=== PATIENT | female | born 1950 | race Caucasian/White ===

== ENCOUNTER → 2021-04-05 09:55 | Outpatient (CLI) | payer MEDICARE, OTHER, SELFPAY ==
--- OUTSIDE RECORDS SUMMARY | 2021-04-03 08:22 | XMS_ITS | Referral Summary ---
:1950 Author Organization [facility] Address [address] [place] [id number] Care Team Providers Name Role Phone Akbar Mueller Primary Care Provider Reason for Referral Consultation (Routine) Status Reason Specialty Diagnoses / Referred By Referred To Procedures Contact Contact Authorized Diagnoses Centrilobular emphysema (CMS/HCC) Milton Adamson MD [facility] Procedures Complete PFT with DLCO [address] [place] [phone] Phone: Electronically signed by Milton Adamson MD atMRI/CAT/PET Scan (Routine) Status Reason Specialty Diagnoses / Referred By Referred To Procedures Contact Contact Pending Review Specialty Radiology Diagnoses Multiple pulmonary nodules Milton Adamson, Services Procedures CT CHEST WITHOUT CONTRAST MD Required [address] [place] [address] Electronically signed by Milton Adamson MD at Reason for Visit Reason Comments COPD Evaluate and Treat (Routine) Status Reason Specialty Diagnoses / Procedures Referred By Coleen ott Referred To Contact Closed Pulmonology Diagnoses COPD (chronic obstructive pulmonary disease) (CMS/HCC) Mercedes Gomez Mv Pulmonology Procedures MD Renetta [address] 275 [facility] [address] [place] [phone] Phone: [phone] Fax: Encounter Details Date Type Department Care Team Description 03/29/2021 Office Visit Milton Woodson M D Centrilobular emphysema (CMS/HCC) (Prima ry Dx); Clinics Pulmonology [address] Multi ple pulmonary nodules [facility] [address] [place], [place] [phone] Allergies Active Allergy Reactions Severity Noted Date Comments Ciprofloxacin High 10/07/2019 Sulfa (Sulfonamide Antibiotics) High 0 documented as of this encounter (statuses as of 03/29/2021) Medications Medication Sig Dispensed Refills Start Date End Date Status PROAIR HFA 90 0 08/23/2019 Activ e mcg/actuation inhaler amLODIPine (NORVASC) 5 0 08/19/2019 Active mg tablet ADVAIR DISKUS 250-50 0 08/23/2019 Active mcg/dose diskus inhaler SPIRIVA WITH 0 08/23/2019 Active HANDIHALER 18 mcg PARoxetine (PAXIL) 20 2 (two) times a 0 08/19/2019 Active mg tablet day cholecalciferol, Take 5,000 Units 0 Active vitamin D3, 25 mcg by mouth daily (1,000 unit) capsule aspirin 325 mg tablet Take 325 mg by 0 Active mouth daily esomeprazole (NexIUM) Take 40 mg by 0 Active 40 mg capsule mouth every morning before breakfast magnesium 30 mg tablet Take 30 mg by 0 Active mouth daily PreviDent 5000 Plus 0 01/26/2021 Active 1.1 % cream sucralfate (CARAFATE) 0 03/18/2021 Active 1 gram tablet tolterodine LA (DETROL 0 03/18/2021 Active LA) 2 mg 24 hr capsule melatonin 10 mg Take 20 mg by 0 Active capsule mouth nightly NEBULIZERS MISC 0 Acti ve documented as of this encounter (statuses as of 03/29/2021) Active Problems Problem Noted Date Primary osteoarthritis of right hip 10/11/2019 documented as of this encounter (statuses as of 03/29/2021) Social History Tobacco Use Types Packs/Day Years Used Date Former Smoker Cigarettes 1.5 4.5 Quit: 1967 Smokeless Tobacco: Never Used Alcohol Use Standard Drinks/Week Comments Yes 2 (1 standard drink = 0.6 oz pure alcoho l) Sex Assigned at Date Recorded Not on file Job Start Date Occupation Industry Not on file Not on file Not on file documented as of this encounter Last Filed Vital Signs Vital Sign Reading Time Taken Comments Blood Pressure 119/75 03/29/2021 1:17 PM PDT Pulse 76 03/29/2021 1:17 PM PDT Temperature 36.8 ??C (98.2 ??F) 03/29/2021 1:17 PM PDT Respiratory Rate - - Oxygen Saturation 96% 03/29/2021 1:17 PM PDT Inhaled Oxygen Concentration - - Weight 83.1 kg (183 lb 3.2 oz) 03/29/2021 1:17 PM PDT Height 167.6 cm (5' 6) 03/29/2021 1:17 PM PDT Body Mass Index 29.57 03/29/2021 1:17 PM PDT documented in this encounter Patient Instructions Patient InstructionsHarMilton draper MD - 03/29/2021 1:20 PM PDT You were seen in pulmonary clinic today to establish pulmonary care for your COPD and multiple pulmonary nodules. Continue Advair Continue Spiriva Continue albuterol ipratropium nebulized as needed Continue albuterol inhaler as needed Continue BPAP with sleep You will be contacted to schedule a CT of the chest at [facility] radiology You will be contacted to schedule a pulmonary function test at [facility] pulmonary function testing Follow-up in 4 months documented in this encounter Progress Notes Milton Adamson MD - 03/29/2021 1:20 PM PDT [facility] PULMONARY CONSULT NOTE PRIMARY CARE PHYSICIAN: Akbar Mueller Patient Name: Renae Lafleur : 1950 DIAGNOSES: Patient Active Problem List Diagnosis ??? Primary osteoarthritis of right hip Assessment: 1. Severe COPD, possible asthma COPD overlap, no recent exacerbation, symptoms well controlled. 2. Multiple calcified pulmonary nodules and emphysema, stable by serial CT through 2017 3. Chronic respiratory failure with hypoxemia and hypercapnia, use of BiPAP plus supplemental O2 with sleep 4. Dyspnea on exertion, stable I discussed with Ms. Lafleur that overall she does seem to be doing fairly well on her current regimen of inhaled therapies and I will have her continue these as below. I will have her undergo updated noncontrast CT chest, pulmonary function testing and she agreed to the plan. Encouraged her to stay as active as she can tolerate, she is quite busy taking care of 2 other elderly adults with health problems in her home. 1. Severe COPD, possible asthma COPD overlap ???Update PFT, she requests at [place] PFT lab ???She will continue Spiriva daily ???Continue Advair twice daily ???Continue ipratropium albuterol nebulized as needed ???Continue albuterol MDI as needed 2. Multiple calcified pulmonary nodules and emphysema, stable by serial CT through 2017 ???Noncontrast CT chest, she requests this be done at [facility] radiology 3. Chronic respiratory failure with hypoxemia and hypercapnia, use of BiPAP plus supplemental O2 with sleep ???She will continue BiPAP plus supplemental O2, this is being prescribed by sleep physician 4. Dyspnea on exertion, stable ???Encouraged her to stay as active as she can tolerate Follow-up in 4 months Thank you very much for the opportunity to evaluate and participate in the care of Ms. Lafleur. Please contact me with any questions. Chief Complaint: Renae Lafleur is a 70 y.o. woman presenting for evaluation of COPD, calcified pulmonary nodules and chronic respiratory failure with hypercapnia and hypoxemia History of Present Illness: Ms. Lafleur is a 70-year-old remotely former tobacco smoker with a history of severe COPD, asthma, pulmonary nodular amyloidosis, chronic hypercapnic respiratory failure and JAMILA and lupus referred by Dr. Gomez for evaluation of patient's shortness of breath with exertion, COPD and multiple pulmonary nodules. Ms. Lafleur tells me that she has been doing normal for me with reference to shortness of breath with exertion and use of inhaled medications. She reports being followed for many years at from [facility] pulmonary clinic on [facility] by Dr. Gomez and I reviewed some of the scanned in notation. For at least the last 5 years the patient has documented severe COPD, most recent PFT I reviewed [id number] showed FEV1 of 0.85 L, 37% predicted, FEV1 FEC ratio 0.45 and diffusing capacity 47% predicted. She has had multiple stable calcified nodules followed with annual CT, biopsy suggesting nodular amyloid diagnosed as most likely secondary to her history of lupus. The most recent CT report I reviewed is from October 2016 multiple parenchymal calcification opacities stable, left upper lobe 15 mm, right middle lobe 2.4 x 1.5 cm, multiple stable cysts and/or emphysematous changes, left basilar scar1.6 x 1.4 cm. This was all in comparison to CT 2011. Ms. Lafleur is currently using Spiriva daily, Advair 250 mcg 1 puff 2 times daily and will periodically use albuterol ipratropium nebulized. She reports undergoing a course of steroids for her lupus flare triggered by Covid vaccination but has not required steroids in her memory perhaps in at least 3 y ears for COPD. She has never been hospitalized for COPD. Functionally she reports herself as doing okay, has to use a wheeled walker if she has to walk anydistance. She stays pretty active at home and humorously states that if she has to exert herself, lift anything, go up an incline, she will elmore and puff like a steam engine. She feels like her tolerance of lifting, ambulating, inclines, etc. has been stable over the last couple years. She is actually at home taking care of a 94-year-old mother and her with dementia. She has periodic cough, minimal sputum production. She is using supplemental oxygen with BiPAP, has an upcoming sleep appointment. She does not use supplemental oxygen very often during the day. Additional surgical history reviewed, she has history of gastric bypass. Review of systems except as stated, negative. Past Medical History: Diagnosis Date ??? Amyloidosis, unspecified (CMS/HCC) ??? Anemia, iron deficiency ??? Asthma ??? Asymptomatic postmenopausal status ??? Bronchiectasis (CMS/HCC) ??? Carpal tunnel syndrome ??? Cervical radiculopathy ??? COPD (chronic obstructive pulmonary disease) (CMS/HCC) ??? Cough ??? Discoid lupus erythematosus ??? Diverticular disease ??? Dysphagia, unspecified ??? Dyspnea on exertion ??? Encounter for screening mammogram for breast cancer ??? Epigastric pain ??? Essential hypertension, benign ??? GERD (gastroesophageal reflux disease) ??? Headache ??? Hearing loss ??? Hip pain, right ??? History of pneumonia ??? Leukopenia ??? Malaise and fatigue ??? Nausea ??? Obstructive sleep apnea ??? Osteoporosis ??? Other chest pain ??? Pneumonia ??? Postnasal drip ??? Shoulder pain, right ??? Sinusitis, chronic ??? Unspecified otitis externa, bilateral Past Surgical History: Procedure Laterality Date ??? BARIATRIC SURGERY [place] ??? HIP ARTHROPLASTY Right FELIPE, DOS: [address] Brian Kenney at [facility] , ??? KNEE SURGERY Bilateral arthroplasties ??? NECK SURGERY C-7 fracture Allergies Allergen Reactions ??? Ciprofloxacin ??? Sulfa (Sulfonamide Antibiotics) Home Meds: Current Outpatient Medications on File Prior to Visit Medication Sig Dispense Refill ??? ADVAIR DISKUS 250-50 mcg/dose diskus inhaler ??? amLODIPine (NORVASC) 5 mg tablet ??? aspirin 325 mg tablet Take 325 mg by mouth daily ??? cholecalciferol, vitamin D3, 25 mcg (1,000 unit) capsule Take 5,000 Units by mouth daily ??? esomeprazole (NexIUM) 40 mg capsule Take 40 mg by mouth every morning before breakfast ??? magnesium 30 mg tablet Take 30 mg by mouth daily ??? melatonin 10 mg capsule Take 20 mg by mouth nightly ??? NEBULIZERS MISC ??? PARoxetine (PAXIL) 20 mg tablet 2 (two) times a day ??? PreviDent 5000 Plus 1.1 % cream ??? PROAIR HFA 90 mcg/actuation inhaler ??? SPIRIVA WITH HANDIHALER 18 mcg ??? sucralfate (CARAFATE) 1 gram tablet ??? tolterodine LA (DETROL LA) 2 mg 24 hr capsule No current facility-administered medications on file prior to visit. Social History Socioeconomic History ??? Marital status: Spouse name: Not on file ??? Number of children: Not on file ??? Years of education: Not on file ??? Highest education level: Not on file Tobacco Use ??? Smoking status: Former Smoker Packs/day: 1.50 Years: 4.50 Pack years: 6.75 Types: Cigarettes Quit date: 1968 Years since quittin.5 ??? Smokeless tobacco: Never Used Vaping Use ??? Vaping Use: Never used Substance and Sexual Activity ??? Alcohol use: Yes Alcohol/week: 2.0 standard drinks Types: 1 Glasses of wine, 1 Standard drinks or equivalent per week ??? Drug use: Never ??? Sexual activity: Defer Family History Problem Relation Age of Onset ??? Diabetes Mother ??? Leukemia Father Review of Systems: Per HPI, otherwise a complete review of systems was negative. OBJECTIVE: Vital Signs on Arrival: Temp: 36.8 ??C (98.2 ??F) Heart Rate: 76 SpO2: 96 % BP: 119/75 Vitals Signs (most recent): Temp: 36.8 ??C (98.2 ??F) Heart Rate: 76 SpO2: 96 % BP: 119/75 Admission Weight: Weight: 83.1 kg Physical Exam: General: Woman of medium habitus breathing comfortably, focused, in good spirits Neurologic: Awake. Alert. Oriented. Akbar equally. Stable rise from chair and ambulate with wheeled walker HENT: No nasal deformity or drainage Eyes: Conjunctivae clear, sclera anicteric Neck: supple. No LAD. CV: Regular Pulm: Breath sounds a little quiet during expiratory phase, adequate air movement, no wheezing or crackles Abdomen: Soft. Nontender. Nondistended. Extremities: Warm and well perfused. Skin: No rash or ecchymosis. Total time spent in consultation, 45 minutes. More than 50% of this time was in [id number] interview, exam and counseling with the patient today. Electronically signed by MILTON ADAMSON MD DATE/TIME: 03/29/2021 1:43 PM documented in this encounter Plan of Treatment Upcoming Encounters Date Type Specialty Care Team Description 05/14/2021 Office Visit Dermatology Pina Flynn, [facility] [address] [place], [place] [address] Scheduled Orders Name Type Priority Associated Diagnoses Order S chedule CT CHEST WITHOUT Imaging Routine Multiple pulmonary nodul es Expected: 03/29/2021, CONTRAST Expires: 2020 Complete PFT with PFT Routine Centrilobular emphysema Expected: 03/29/2021, DLCO (CMS/HCC) Expires: 2021 documented as of this encounter Visit Diagnoses Diagnosis Centrilobular emphysema (CMS/HCC) - Prim bekah Multiple pulmonary nodules Other diseases of lung, not elsewhere cl assified documented in this encounter documented as of this encounter Advance Directives Documents on File Type Date Recorded Patient Pharmacist Aide Explanati on Advance Directives and Living Will
--- NOTE | 2021-04-05 10:16 | DI.CT.S_ITS ---
PROCEDURE: CT CHEST WO CON INDICATIONS: Other nonspecific abnormal finding of lung field TECHNIQUE: Noncontrast 5 mm thick sections acquired from the pulmonary apices to the posterior costophrenic angles. 1 mm lung window, 5 mm thick coronal and sagittal and 7 mm axial MIP reformats were then acquired. For radiation dose reduction, the following was used: automated exposure control, adjustment of mA and/or kV according to patient size. COMPARISON: None. FINDINGS: Image quality: Excellent. Lungs and pleura: Scattered areas of irregular calcific density. For example: -right upper lobe juxta fissural 2.3 x 1.6 cm, (3/129). -right middle lobe 2.4 x 1.9 cm, (3/199). This is ill-defined. -left upper lobe 1.8 x 1.3 cm, (3/108). This has a platelike appearance on the sagittal images. Scattered thin walled pulmonary cysts bilaterally. Some of the cysts are associated with this irregular calcification. Mild atelectasis at the left costophrenic angle. The central airways are clear. No pleural effusion. No pneumothorax. Mediastinum: Heart size is prominent. Three-vessel coronary artery calcifications. No pericardial effusion. No mediastinal adenopathy by size criteria. Thoracic aorta and central pulmonary arteries are normal in size. Aortic arch atherosclerotic calcifications. Esophagus is normal in caliber. No hiatal hernia. Bones and chest wall: ACDF. No suspicious bony lesions. No vertebral body compression fractures. No axillary or supraclavicular adenopathy by size criteria. Thyroid gland is unremarkable. Abdomen: Gastric bypass. Calcification at the splenic hilum. Visualized upper abdominal solid organs and bowel loops appear normal in the absence of contrast. IMPRESSION: 1. Scattered irregular pulmonary calcifications. These do not have the typical appearance of a granuloma. However, these may be the sequelae of prior infectious/inflammatory etiology such as mycobacterium avium intracellulare (AAYUSH). Benign or malignant metastatic calcifications are also in the differential diagnosis. Such as calcifications associated with renal disease or osteosarcoma. 2. Non-specific pulmonary cystic disease. Some of these cysts appear to be associated with the calcifications. 3. No pleural calcifications. No pleural effusion. Recommend comparison with a prior CTs if available. Follow-up CT chest in 6-12 months may also be helpful. If concern for metastatic calcifications consider further evaluation with CT abdomen pelvis with IV contrast. Dictated by: Tristan Lorenzo M.D. on 04/05/2021 at 11:33 Approved by: Tristan Lorenzo M.D. on 04/05/2021 at 12:19
== END ==
PROVIDERS: PCP Internal Medicine; Referring Provider Internal Medicine Critical Care Medicine; Visit Provider Internal Medicine Critical Care Medicine
DX: R91.8 Other nonspecific abnormal finding of lung field (principal); J98.4 Other disorders of lung
CPT/HCPCS: 71250

== ENCOUNTER → 2021-04-12 13:05 | Outpatient (CLI) | payer MEDICARE, OTHER, SELFPAY ==
[2021-04-12 13:49] LABS: COVID19 -Nasal RAPID Negative (Negative)
== END ==
PROVIDERS: PCP Internal Medicine; Referring Provider Internal Medicine Critical Care Medicine; Visit Provider Internal Medicine Critical Care Medicine
DX: J43.2 Centrilobular emphysema (principal); Z20.822 Contact with and (suspected) exposure to COVID-19
CPT/HCPCS: 87635; C9803

== ENCOUNTER → 2021-04-12 13:07 | Outpatient (CLI) | payer MEDICARE, OTHER, SELFPAY ==
--- NOTE | 2021-04-17 09:04 | PM.PFT.1 ---
Pulmonary Function Test Referral & Results Date Patient Seen: 05/13/21 Requesting provider: Milton Acharya Results: The spirometry demonstrates an FVC of 2.08 L which is 64% of predicted. The FEV1 was measured at 0.93 L which is 38% of predicted. The FEV1/FVC ratio was 45 which is 50% of predicted. Following the administration of bronchodilator there was a 19% improvement in FEV1 and a 48% improvement in FEF 25-75%. Lung volumes show an SVC of 2.42 L which is 79% of predicted. The diffusing capacity was measured at 14.46 which is 53% of predicted. No hemoglobin value was provided, so no correction for potential anemia could be made, if appropriate. The maximum voluntary ventilation was reduced Interpretation: This study demonstrates severe obstructive lung disease with an FEV1 of less than 1 L. There is evidence of substantial benefit following bronchodilator based on improvement in FEV1 and FEF 25-75%. There is a mild reduction in lung volumes suggesting minimal restrictive lung disease There is also pliw-qx-zuhbygmd reduction diffusing capacity suggesting significant disease at the capillary alveolar level Altogether this is consistent with a diagnosis of COPD. Clinical correlation suggested.
== END ==
PROVIDERS: PCP Internal Medicine; Referring Provider Internal Medicine Critical Care Medicine; Visit Provider Internal Medicine Critical Care Medicine
DX: J43.2 Centrilobular emphysema (principal); Z20.822 Contact with and (suspected) exposure to COVID-19; Z87.891 Personal history of nicotine dependence
CPT/HCPCS: 87635; 94060; 94726; 94729; C9803

== ENCOUNTER → 2025-02-03 12:29 | Outpatient (CLI) | payer MEDICARE, OTHER, SELFPAY ==
--- NOTE | 2025-02-03 12:32 | DI.ECHO.S_ITS ---
[facility] : : [address] [place] : : [id number] : : Phone: [phone] Echocardiogram Report + + :Name: AMARJIT NAVARRETE Study Date: 02/03/2025 Height: 66 in : :[facility] ReadingLocation: Weight: 150 lb : : Gender: Female BSA: 1.8 m2 : :: 1950 Age: 74 yrs BP: 138/83 mmHg: :Reason For Study: LOWER EXTREMITY EDEMA, RESPIRATORY FAILURE : :Ordering Physician: GRECIA, : :DUYEN Performed By: Jason Jo : :Referring: DUYEN PAIGE : + + Interpretation Summary Normal sinus rhythm. Heart rate is 85-88 bpm. Normal LV size and wall thickness. Normal wall motion and LV systolic function. Ejection fraction 60-65%. Severe biatrial enlargement; mildly dilated right ventricle with normal RV systolic function. Severely thickened mitral valve annulus with mildly thickened and calcified subchordal apparatus. Moderate mitral stenosis with mean gradient of 7 mmHg. Aortic valve is a trileaflet structure characterized by moderately thickened and calcified aortic valve leaflets with mildly reduced leaflet excursion. There is mild aortic regurgitation; moderate aortic stenosis with peak velocity of 3.2 m/s and mean gradient of 22 mmHg. Estimated PA systolic pressure is 99 mmHg assuming right atrial pressure 15 mmHg. No prior echo available for comparison. Procedure: A two-dimensional transthoracic echocardiogram with color flow and Doppler was performed. The study quality was technically good. There is no prior echocardiogram noted for this patient. The patient was in normal sinus rhythm during the exam. Left Ventricle: The left ventricle is normal in size. There is normal left ventricular wall thickness. There is no ventricular septal defect visualized. The ejection fraction is estimated to be 60-65%. There are no focal wall motion abnormalities. Diastolic function could not be accurately assessed due to confounding valvular disease. Right Ventricle: The right ventricle is mildly dilated. Atria: The left atrium is severely dilated. The right atrium is severely dilated. There is no Doppler evidence for an interatrial shunt. Mitral Valve: There is severe mitral annular calcification. The mitral valve leaflets appear mildly thickened, but open well. There is moderate mitral stenosis. The mitral valve mean gradient is 7.0 mmHg. There is trace mitral regurgitation. Aortic Valve: The aortic valve is trileaflet. The aortic valve is moderately calcified. There is moderate aortic stenosis. The calculated aortic valve area is 1.2 cm2. The peak aortic velocity is 3.2 m/sec. The aortic valve mean gradient is 25.4 mmHg. There is mild aortic regurgitation. Tricuspid Valve: The tricuspid valve leaflets are thin and pliable. There is mild tricuspid regurgitation. The right ventricular systolic pressure is estimated to be at least 99 mmHg based on an estimated right atrial pressure of 15 mm Hg. Pulmonic Valve: The pulmonic valve leaflets are thin and pliable; valve motion is normal. There is no pulmonic valvular regurgitation. Great Vessels: The aortic root is normal size. The dimensions of the ascending aorta are normal. The pulmonary artery is normal size. The IVC is dilated (diameter is greater than 2.1 cm) yet it collapses greater than 50% with a sniff. This suggests a right atrial pressure of 8 mm Hg. Pericardium/ Pleura There is no pericardial effusion. There is no pleural effusion. MMode/2D Measurements & Calculations LVIDd: 4.2 cm LVOT diam: 2.2 cm LVIDs: 3.0 cm Ao root diam: 3.5 cm FS: 29.3 % EPSS: 1.1 cm IVSd: 1.0 cm LVPWd: 0.89 cm LV darnell. diameter/BSA (cm/m^2): 2.4 LV sys. diameter/BSA (cm/m^2): 1.7 LA A2 area: 27.0 cm2 RA long axis: 5.7 cm LA A4 area: 19.2 cm2 RA area: 24.4 cm2 LA length (vol): 5.1 cm RA vol: 88.8 ml LA vol: 86.6 ml RA : 50.2 ml/m2 LA vol index: 48.9 ml/m2 IVC diam: 2.1 cm RVD1 (basal): 3.5 cm RVD2 (mid): 2.6 cm TAPSE: 2.9 cm Doppler Measurements & Calculations Ao V2 max: 318.4 cm/sec LVOT Max Hector: 108.0 cm/sec Ao V2 mean: 242.5 cm/sec LV V1 max P.7 mmHg Ao max P.6 mmHg LV V1 VTI: 27.4 cm Ao mean P.4 mmHg LATONYA(I,D): 1.3 cm2 Ao V2 VTI: 77.5 cm LATONYA(V,D): 1.2 cm2 sev ratio: 0.35 LATONYA indexed to BSA (cm^2/m^2): 0.73 AI P1/2t: 367.8 msec AI dec slope: 340.6 cm/sec2 MV E max hector: 138.2 cm/sec TR max hector: 458.1 cm/sec MV A max hector: 177.2 cm/sec TR max P.0 mmHg MV E/A: 0.78 PA V2 max: 87.6 cm/sec Med Peak E' Hector: 3.3 cm/sec PA V2 mean: 55.3 cm/sec E/E' med: 42.3 PA mean P.4 mmHg Lat Peak E' Hector: 4.8 cm/sec PA pr(Accel): 51.6 mmHg E/E' lat: 28.9 E/e' average: 35.6 MV dec time: 0.41 sec MVA(VTI): 1.7 cm2 MV V2 mean: 125.6 cm/sec SV(LVOT): 100.2 ml MV mean P.0 mmHg MV V2 VTI: 58.3 cm Electronically signed by: Leora Abraham M.D. on Reading Physician:02/03/2025 04:00 PM
--- NOTE | 2025-02-03 12:32 | DI.RAD.S_ITS ---
PROCEDURE: XR DEXA AXIAL SKELETON INDICATIONS: Osteoporosis COMPARISON: None. FINDINGS: Lumbar Spine: Bone mineral density 0.739 g/cm2, T score -3.1. Left Femoral Neck: Bone mineral density 0.663 g/cm2, T score -1.7. Left Hip: Bone mineral density 0.793 g/cm2, T score -1.2. Fracture Risk Calculation (when applicable): Not applicable (T score greater or equal to -1.0 to: NORMAL) (T score from -1.1 to -2.4: OSTEOPENIA) (T score less than or equal to -2.5: OSTEOPOROSIS) IMPRESSION: 1. Osteoporosis of the lumbar spine. 2. Osteopenia of the left hip and femoral neck. Follow-up guidelines as follows: Osteoporosis: Consider a repeat DEXA and Vertebral Fracture Assessment (VFA) exam in 2 years or sooner if medically necessary, to reassess this patient's status. Osteopenia: Consider a repeat DEXA in 2-3 years to reassess this patient's status, or if there is a new clinical indication. Normal: Consider a repeat DEXA in 5 years or sooner, or if there is a new clinical indication. All treatment decisions require clinical judgment and consideration of individual patient factors, including patient preferences, comorbidities, previous drug use, risk factors not captured in the FRAX model (e.g., frailty, falls, vitamin D deficiency, increased bone turnover, interval significant decline in bone density ) and possible under- or over-estimation of fracture risk by FRAX. In addition, the NOF Guide recommends that FDA-approved medical therapies be considered in postmenopausal women and men age >= 50 years with a: * Hip or vertebral (clinical or morphometric) fracture * T-score of <=-2.5 at the spine or hip * Ten-year fracture probability by FRAX of >= 3% for hip fracture or >=20% for major osteoporotic fracture. Dictated by: Bob Carrizales M.D. on 02/03/2025 at 17:16 Approved by: Bob Carrizales M.D. on 02/03/2025 at 17:17
== END ==
PROVIDERS: PCP Family Medicine; Referring Provider Family Medicine; Visit Provider Family Medicine
DX: I08.3 Combined rheumatic disorders of mitral, aortic and tricuspid valves (principal); M81.0 Age-related osteoporosis without current pathological fracture; M85.89 Other specified disorders of bone density and structure, multiple sites; M79.89 Other specified soft tissue disorders; J96.10 Chronic respiratory failure, unspecified whether with hypoxia or hypercapnia; J44.9 Chronic obstructive pulmonary disease, unspecified; Z78.0 Asymptomatic menopausal state
CPT/HCPCS: 77080; 93306

== ENCOUNTER → 2025-02-16 12:24 | Outpatient (CLI) | payer MEDICARE, OTHER, SELFPAY ==
[2025-02-16 13:09] LABS: Add Manual Diff / Slide Review NO; Basophils Absolute Auto 100 /uL (0-100); Basophils Percent Auto 0.9 % (0-2); Eosinophils Absolute Auto 100 /uL (0-450); Eosinophils Percent Auto 1.9 % (2-4); Hematocrit 39.6 % (36-46); Hemoglobin 13.1 g/dL (12.0-16.0); Lymphocytes Absolute Auto 1100 /uL (1100-4500); Lymphocytes Percent Auto 15.7 % (25-40); Mean Corpuscular Hemoglobin 30.9 PG (26-34); Mean Corpuscular Volume 93.4 fL (80-100); Monocytes Absolute Auto 800 /uL (0-900); Monocytes Percent Auto 10.8 % (3-14); Neutrophils Absolute Auto 5100 /uL (1500-7000); Neutrophils Percent Auto 70.7 % (50-75); Platelet Count 195 X10^3/uL (150-400); Red Blood Cell Count 4.24 X10^6/uL (4.0-5.2); Red Cell Distribution Width 13.5 % (11.6-14.8); White Blood Cell Count 7.2 X10^3/uL (4.5-11.0)
[2025-02-16 13:40] LABS: Alanine Aminotransferase 15 IU/L (<35); Albumin Globulin Ratio 1.1 (1.0-2.8); Alkaline Phosphatase 61 U/L (38-126); Aspartate Aminotransferase 28 IU/L (14-36); BUN Creatinine Ratio 27.3 (6-22); Bilirubin Total 0.7 mg/dL (0.2-1.3); Blood Urea Nitrogen 18 mg/dL (7-17); Calcium 9.2 mg/dL (8.4-10.2); Carbon Dioxide 30 mmol/L (22-32); Chloride 101 mmol/L (98-107); Cholesterol 205 mg/dL (140-199); Estimated Glomerular Filt Rate > 60 mL/min (>60); Globulin 3.6 g/dL (1.7-4.1); Glucose 86 mg/dL (70-99); HDL Cholesterol 55 mg/dL (40-60); HEMOLYSIS < 15 (0-50); LDL Cholesterol Calculated 131 mg/dL (<100); Potassium 4.4 mmol/L (3.4-5.1); Sodium 137 mmol/L (137-145); Total Protein 7.6 g/dL (6.3-8.2); Triglycerides 94 mg/dL (35-150)
== END ==
PROVIDERS: PCP Family Medicine; Referring Provider Family Medicine; Visit Provider Family Medicine
DX: J44.9 Chronic obstructive pulmonary disease, unspecified (principal); J96.10 Chronic respiratory failure, unspecified whether with hypoxia or hypercapnia; E78.5 Hyperlipidemia, unspecified
CPT/HCPCS: 36415; 80053; 80061; 85025

== ENCOUNTER → 2025-04-21 15:48 | Outpatient (CLI) | payer MEDICARE, OTHER, SELFPAY ==
[2025-04-24 15:08] LABS: Interpretation Negative (Negative)
== END ==
PROVIDERS: PCP Family Medicine; Referring Provider Family Medicine; Visit Provider Family Medicine
DX: R10.13 Epigastric pain (principal)
CPT/HCPCS: 83013

== ENCOUNTER 2025-04-24 16:20 | Emergency (ER) | payer MEDICARE, OTHER, SELFPAY ==
[2025-04-24] VITALS (18 sets, daily range): BP systolic 113–183; BP diastolic 56–97; PULSE 85–99; RESP 14–26; TEMP 37; O2SAT 91–100; BMI 23.3
--- NOTE | 2025-04-24 16:35 | DI.RAD.S_ITS ---
PROCEDURE: XR CHEST 1V INDICATIONS: chest pain TECHNIQUE: One view of the chest was acquired. COMPARISON: None. FINDINGS: Surgical changes and devices: ACDF of the lower cervical spine. Lungs and pleura: Lungs are clear. No pleural effusions or pneumothorax. Calcified granuloma. Bibasilar scarring. Mediastinum: Mediastinal contours appear normal. Heart size is enlarged. Bones and chest wall: No suspicious bony lesions. Overlying soft tissues appear unremarkable. IMPRESSION: No acute cardiopulmonary abnormality is seen. Dictated by: Fortino Jung M.D. on 04/24/2025 at 17:00 Approved by: Fortino Jung M.D. on 04/24/2025 at 17:00
--- NOTE | 2025-04-24 16:35 | DI.CT.S_ITS ---
PROCEDURE: CT HEAD/BRAIN WO CON INDICATIONS: crao per eye md TECHNIQUE: Noncontrast 4.5 mm thick angled axial sections acquired from the foramen magnum to the vertex, with coronal and sagittal reformats. For radiation dose reduction, the following was used: automated exposure control, adjustment of mA and/or kV according to patient size. COMPARISON: None. FINDINGS: Image quality: Diagnostic. CSF spaces: Basal cisterns are patent. No extra-axial fluid collections. The ventricles are symmetric in size and shape. Brain: No intracranial bleeds or mass effect. There is cerebral volume loss, with resultant ventricular and sulcal prominence. There are periventricular and deep white matter chronic small vessel ischemic changes. There is intracranial internal carotid artery atherosclerosis. Skull and face: Calvarium and visualized facial bones appear intact, without suspicious lesions. Sinuses: Visualized sinuses and mastoids are clear. IMPRESSION: No acute intracranial pathology. Dictated by: Fortino Jung M.D. on 04/24/2025 at 17:52 Approved by: Fortino Jung M.D. on 04/24/2025 at 17:53
--- NOTE | 2025-04-24 16:35 | DI.CT.S_ITS ---
PROCEDURE: CT ANGIO HEAD AND NECK INDICATIONS: crao per eye md TECHNIQUE: After the administration of intravenous contrast, 1 mm thick sections acquired from the aortic arch through the [place]. 3-dimensional vvaoaje-lwzikokkr-rdqoyttwih (MIP) and/or volume rendering reformats were acquired of the central intracranial vasculature and neck separately. For radiation dose reduction, the following was used: automated exposure control, adjustment of mA and/or kV according to patient size. COMPARISON: None. FINDINGS: Image quality: Diagnostic. Cerebral CT Angiogram: Internal carotid arteries: No acute findings. Intracranial ICA are patent with no significant stenosis. No occlusion. No aneurysm. Anterior cerebral arteries: Unremarkable. No significant stenosis. No occlusion. No aneurysm. Middle cerebral arteries: Unremarkable. No significant stenosis. No occlusion. No aneurysm. Posterior cerebral arteries: Unremarkable. No significant stenosis. No occlusion. No aneurysm. Basilar artery: Unremarkable. No significant stenosis. No occlusion. No aneurysm. Vertebral arteries: Unremarkable as visualized. Dural venous sinuses: Unremarkable given phase of enhancement. Other: Arterial phase appearance of the brain parenchyma is unremarkable. Neck CT Angiogram: Internal carotid arteries: Unremarkable. No significant stenosis. No dissection or occlusion. Common carotid arteries: Unremarkable. No significant stenosis. No dissection or occlusion. External carotid arteries: Unremarkable. No occlusion. Vertebral arteries: Unremarkable. No significant stenosis. No dissection or occlusion. Aortic Arch and Mediastinum: Partially visualized aortic arch unremarkable without evidence of aneurysm. Origins of the great vessels unremarkable. Other: Arterial phase soft tissues of the neck and chest are unremarkable. IMPRESSION: No significant intracranial arterial abnormality is seen. No significant abnormality is seen within the arteries of the neck. Any quantitative measurements of stenosis were performed using NASCET criteria. Dictated by: Fortino Jung M.D. on 04/24/2025 at 18:00 Approved by: Fortino Jung M.D. on 04/24/2025 at 18:01
--- NOTE | 2025-04-24 17:00 | EKG_ITS ---
[place] [id number] [address] [place] [id number] Test Date: 2025-04-24 Pat Name: Renae Lafleur Department: [facility] Room: Gender: Female [employer]ill Shar[employer] Operator: PETER : 1950 Requested By: Order Number: [id number] Reading MD: Brian Nolasco MD Measurements Intervals [place] Rate: 88 P: 74 SC: 140 QRS: 69 QRSD: 92 T: 50 QT: 402 QTc: 486 Interpretive Statements Sinus rhythm with premature atrial complexes Possible Left atrial enlargement NO PRIOR TRACING Electronically Signed On 04-24-2025 17:10:30 PDT by Brian Nolasco MD
[2025-04-24 17:19] LABS: Alanine Aminotransferase 18 IU/L (<35); Albumin 3.9 g/dL (3.5-5.0); Albumin Globulin Ratio 0.9 (1.0-2.8); Alkaline Phosphatase 58 U/L (38-126); Blood Urea Nitrogen 27 mg/dL (7-17); Calcium 9.0 mg/dL (8.4-10.2); Carbon Dioxide 26 mmol/L (22-32); Chloride 102 mmol/L (98-107); Creatine Kinase 121 U/L (30-135); Estimated Glomerular Filt Rate > 60 mL/min (>60); Globulin 4.2 g/dL (1.7-4.1); Glucose 107 mg/dL (70-99); Lipase 29 U/L (23-300); Sodium 135 mmol/L (137-145); Total Protein 8.1 g/dL (6.3-8.2)
[2025-04-24 17:20] LABS: Potassium 4.2 mmol/L (3.4-5.1)
[2025-04-24 17:32] LABS: Troponin I 0.224 ng/mL (0.01-0.034)
--- NOTE | 2025-04-24 18:01 | DI.MRI.S_ITS ---
PROCEDURE: MR HEAD/BRAIN WO CON INDICATIONS: visual changes, ?CRAO TECHNIQUE: Non-contrast axial T1 spin echo, axial T2 fast spin echo, sagittal and axial FLAIR, coronal T2 fast spin echo, axial gradient echo, axial diffusion and ADC through the brain. COMPARISON: [facility], CT, CT HEAD/BRAIN WO CON, 04/24/2025, 17:29. FINDINGS: Image quality: Motion degraded CSF spaces: Ventricles appear symmetric in size and shape. Basal cisterns are patent. No extra-axial fluid collections. Brain: Small focus of restricted diffusion within the inferior and medial left frontal lobe measuring approximately 4 mm (6/12). Additional tiny punctate focus within the left frontal lobe more superiorly (6/18). No intracranial bleeds or mass effects. There is cerebral volume loss for age. There are periventricular and deep white matter chronic small vessel ischemic changes including within the brainstem. No chronic ischemic insults. Normal intravascular flow voids are present. Skull and face: Calvarial bone marrow is normal in signal. Orbits are normal. Sinuses: Sinuses and mastoids are clear. IMPRESSION: Two small foci of restricted diffusion within the left frontal lobe concerning for acute infarcts. Age-related global volume loss and chronic microvascular ischemic changes are present. Dictated by: Latrell Demarco M.D. on 04/24/2025 at 21:50 Approved by: Latrell Demarco M.D. on 04/24/2025 at 21:54
--- NOTE | 2025-04-24 18:03 | ED.GENADULT ---
HPI - General Adult General Chief complaint: Eye Problems Stated complaint: blind in eye possible stroke Time Seen by Provider: 04/24/25 16:35 Mode of arrival: Wheelchair History of Present Illness HPI narrative: 74-year-old female right-handed, no prior stroke symptoms, wears glasses, at noon today had acute onset loss of vision in the left eye, made appointment with ophthalmology clinic 3:30 p.m., saw Dr. Hammonds in clinic, had dilated eye exam, was told that she had a stroke in the eye and was referred here for further evaluation. CT head and CTA neck vessels studies were ordered at triage. Patient listed to have aspirin daily, but she had stopped it a few weeks ago due to dyspepsia, no black or red stools. History of COPD, previously on 1-2 L home oxygen, recent weeks has increased it to 2-3 L. Currently having occasional dry cough, no chest pain, always has shortness of breath that is not significantly increased last few days. No focal numbness to face arm or leg. No focal weakness to face arm or leg. Vision loss in the left eye seems to be her only new deficit. Related Data Home Medications ?Medication ?Instructions ?Recorded ?Confirmed ferrous sulfate 325 mg (65 mg 325 mg PO DAILY 04/29/23 04/21/25 iron) tablet (FeroSul) metoprolol succinate 50 mg 50 mg PO DAILY 04/29/23 04/21/25 tablet,extended release 24 hr albuterol sulfate 90 mcg/actuation 2 puff inhalation Q4-6H PRN 01/18/25 04/21/25 aerosol inhaler (ProAir HFA) aspirin 325 mg tablet 325 mg PO DAILY 01/18/25 04/21/25 cholecalciferol (vitamin D3) 125 125 mcg PO DAILY 01/18/25 04/21/25 mcg (5,000 unit) capsule fluticasone 500 mcg-salmeterol 50 1 inh inhalation BID PRN 01/18/25 04/21/25 mcg/dose blistr powdr for inhalation (Wixela Inhub) melatonin 10 mg capsule 20 mg PO BEDTIME 01/18/25 04/21/25 paroxetine HCl 20 mg tablet 20 mg PO BID 01/18/25 04/21/25 tiotropium bromide 2.5 2 puff inhalation BID 01/18/25 04/21/25 mcg/actuation mist for inhalation (Spiriva Respimat) tolterodine 2 mg capsule,extended 2 mg PO DAILY 01/18/25 04/21/25 release 24 hr famotidine 20 mg tablet (Pepcid) 20 mg PO DAILY 04/21/25 04/21/25 Previous Rx's ?Medication ?Instructions ?Recorded Battery powered portable O2 #1 ea 04/29/23 concentrator ipratropium 0.5 mg-albuterol 3 mg 3 ml inhalation BID PRN shortness 01/29/24 (2.5 mg base)/3 mL nebulization of breath or wheezing #180 mL soln amlodipine 2.5 mg tablet 2.5 mg PO DAILY #60 tabs 02/23/25 omeprazole 20 mg capsule,delayed 20 mg PO BID #60 caps 04/21/25 release Allergies Allergy/AdvReac Type Severity Reaction Status Date / Time ciprofloxacin AdvReac Severe Anaphylaxis Verified 04/24/25 16:28 Sulfa (Sulfonamide AdvReac Mild Nausea Uncoded 04/24/25 16:28 Antibiotics) Patient History Medical History (Updated 04/25/25 @ 01:28 by Shemar Greenwood MD) Hx of gastric ulcer Epigastric pain determined by examination Surgical History (Updated 04/21/25 @ 15:22 by Abdirashid Quijano DO) Hx of bariatric surgery Social History Smoking Status: Former smoker Smoking Status: Former smoker Exam Narrative Exam Narrative: GENERAL: Well-developed patient, in mild distress. HEAD: Atraumatic. Normocephalic. EYES: Pupils equal round and reactive. Extraocular motions intact. No scleral icterus. No injection or drainage. ENT: Nose without bleeding, purulent drainage. Throat without erythema, tonsillar hypertrophy or exudate. Airway patent. NECK: Trachea midline. Non tender CARDIOVASCULAR: Regular rate and rhythm without murmurs, gallops, or rubs. RESPIRATORY: Clear to auscultation. Breath sounds equal bilaterally. No wheezes, rales, or rhonchi. GASTROINTESTINAL: Abdomen soft, non-tender, nondistended. EXTREMITIES: No edema or joint tenderness. BACK: Nontender without deformity or crepitance. No flank tenderness. NEURO: AOx3. Cranial nerves intact except for vision loss left eye in all nava, magallanes-like vision, can see slight movements only, new since noon today. Dilated eyes bilaterally after ophthalmology clinic noted. Motor function 5/5 bilateral upper extremities, 5/5 bilateral lower extremities. Udghjy-so-rvfe testing, rapid alternating hand movements, ljgh-li-oknt normal (slight decreased aouj-lu-mcpv on the right due to hip/knee orthopedic problems). Sensation light touch to face arm or leg both sides intact. SKIN: No rash or erythema of visible areas Initial Vital Signs Initial Vital Signs: Vital Signs Temperature 98.6 F 04/24/25 16:28 Pulse Rate 99 H 04/24/25 16:28 Respiratory Rate 20 04/24/25 16:28 Blood Pressure 113/56 L 04/24/25 16:28 Pulse Oximetry 97 04/24/25 16:28 Oxygen Delivery Method Room Air 04/24/25 16:28 Course Orders Ordered: ED Orders 04/24/25 21:51 US periph venous low extrem bi Stat 04/24/25 23:41 Troponin I Stat 04/25/25 00:30 PTT Partial Thromboplastin Rolf Stat 04/25/25 01:21 EKG-12 Lead Stat 04/25/25 01:30 PTT Partial Thromboplastin Rolf Q6H Discontinued Medications Acetaminophen (Acetaminophen 325 Mg Tablet) 650 mg PO NOW ONE Stop: 04/25/25 00:35 Last Admin: 04/25/25 00:47 Dose: 650 mg Documented By: IDANIA Aspirin (Aspirin 81 Mg Chew Tab) 324 mg PO NOW ONE Stop: 04/24/25 18:27 Last Admin: 04/24/25 18:45 Dose: 324 mg Documented By: IDANIA Diltiazem HCl (Diltiazem 25 Mg/5 Ml Sdv) 20 mg IV NOW ONE Stop: 04/25/25 01:33 Last Admin: 04/25/25 01:30 Dose: 20 mg Documented By: JANET Heparin Sodium (Porcine) (Heparin 5,000 Unit/Ml Vial) 4,000 unit 60 unit/kg (4000 unit) IV NOW ONE Stop: 04/24/25 18:27 Last Admin: 04/24/25 18:45 Dose: 4,000 unit Documented By: IDANIA Heparin Sodium (Porcine) (Heparin 5,000 Unit/Ml Vial) 1,645 unit IV NOW ONE Stop: 04/25/25 01:09 Last Admin: 04/25/25 01:13 Dose: 1,645 unit Documented By: IDANIA Heparin Sodium/Dextrose (Heparin Drip) 25,000 unit in 500 mls @ 15.785 mls/hr IV CONT TERESA; Protocol Last Titration: 04/25/25 02:50 Dose: Infused Documented By: JANET Co-signed By: NOAH Titration: 04/25/25 01:07 Dose: 13 units/kg/hr, 17.1 mls/hr Documented By: JANET Co-signed By: IDANIA Titration: 04/24/25 21:42 Dose: 12 units/kg/hr, 15.785 mls/hr Documented By: IDANIA Co-signed By: CHELITA Titration: 04/24/25 21:00 Dose: 0 units/kg/hr, 0 mls/hr Documented By: IDANIA Co-signed By: RLC Admin: 04/24/25 18:45 Dose: 12 units/kg/hr, 15.785 mls/hr Documented By: IDANIA Co-signed By: RHONDA Sodium Chloride (Normal Saline 0.9%) 1,000 mls @ 500 mls/hr IV BOLUS ONE Stop: 04/24/25 21:45 Last Infusion: 04/24/25 23:26 Dose: Infused Documented By: Infusion: 04/24/25 21:39 Dose: 500 mls/hr Documented By: Infusion: 04/24/25 21:00 Dose: 0 mls/hr Documented By: Admin: 04/24/25 20:46 Dose: 500 mls/hr Documented By: IDANIA Heparin Sodium/Dextrose (Heparin Drip) 25,000 unit in 500 mls @ 23.678 mls/hr IV CONT TERESA; Protocol Last Titration: 04/25/25 03:30 Dose: 0 units/kg/hr, 0 mls/hr Documented By: JANET Co-signed By: JOBY Admin: 04/25/25 02:49 Dose: 18 units/kg/hr, 23.678 mls/hr Documented By: JANET Co-signed By: NOAH Diltiazem HCl 125 mg/ Sodium (Chloride) 125 mls @ 5 mls/hr IV TITRATE TERESA; Protocol Last Titration: 04/25/25 03:30 Dose: 0 mg/hr, 0 mls/hr Documented By: Titration: 04/25/25 02:25 Dose: 15 mg/hr, 15 mls/hr Documented By: Titration: 04/25/25 02:20 Dose: 0 mg/hr, 0 mls/hr Documented By: Titration: 04/25/25 02:15 Dose: 15 mg/hr, 15 mls/hr Documented By: Titration: 04/25/25 01:59 Dose: 10 mg/hr, 10 mls/hr Documented By: Admin: 04/25/25 01:39 Dose: 5 mg/hr, 5 mls/hr Documented By: JANET Sodium Chloride (Normal Saline 0.9%) 1,000 mls @ 500 mls/hr IV BOLUS ONE Stop: 04/25/25 04:03 Last Infusion: 04/25/25 03:30 Dose: Infused Documented By: Admin: 04/25/25 02:21 Dose: 500 mls/hr Documented By: JANET Metoprolol Tartrate (Metoprolol Tartrate 5 Mg/5 Ml Inj) 5 mg IV NOW ONE Stop: 04/25/25 02:15 Last Admin: 04/25/25 02:16 Dose: 5 mg Documented By: JANET Vital Signs Vital signs: Vital Signs - 8 hr 04/24/25 22:00 04/24/25 22:00 04/24/25 22:30 Pulse Rate 92 H Respiratory Rate 14 Blood Pressure 152/88 H 160/88 H Pulse Oximetry 98 Oxygen Delivery Method Nasal Cannula Oxygen Flow Rate 2 04/24/25 22:30 04/24/25 23:00 04/24/25 23:00 Pulse Rate 87 86 Respiratory Rate 19 18 Blood Pressure 183/89 H Pulse Oximetry 99 98 Oxygen Delivery Method Nasal Cannula Oxygen Flow Rate 2 04/24/25 23:30 04/24/25 23:30 04/25/25 00:00 Pulse Rate 87 Respiratory Rate 16 Blood Pressure 159/80 H 172/109 H Pulse Oximetry 99 Oxygen Delivery Method Oxygen Flow Rate 04/25/25 00:00 04/25/25 00:16 04/25/25 00:16 Pulse Rate 95 H 91 H Respiratory Rate 20 Blood Pressure 160/122 H Pulse Oximetry 99 98 Oxygen Delivery Method Nasal Cannula Nasal Cannula Oxygen Flow Rate 2 2 04/25/25 00:20 04/25/25 00:20 04/25/25 00:30 Pulse Rate 96 H Respiratory Rate 18 Blood Pressure 174/108 H 170/95 H Pulse Oximetry 99 Oxygen Delivery Method Nasal Cannula Oxygen Flow Rate 2 04/25/25 00:30 04/25/25 01:00 04/25/25 01:00 Pulse Rate 92 H 91 H Respiratory Rate 17 18 Blood Pressure 162/92 H Pulse Oximetry 98 99 Oxygen Delivery Method Nasal Cannula Oxygen Flow Rate 2 04/25/25 01:30 04/25/25 01:30 04/25/25 01:30 Pulse Rate 150 H 161 H Respiratory Rate 23 Blood Pressure 196/90 H 196/90 H Pulse Oximetry 97 Oxygen Delivery Method Oxygen Flow Rate 04/25/25 01:36 04/25/25 01:36 04/25/25 01:59 Pulse Rate 89 Respiratory Rate 22 Blood Pressure 127/60 144/70 H Pulse Oximetry 99 Oxygen Delivery Method Oxygen Flow Rate 04/25/25 01:59 04/25/25 02:00 04/25/25 02:00 Pulse Rate 159 H 152 H Respiratory Rate 16 17 Blood Pressure 114/69 Pulse Oximetry 98 98 Oxygen Delivery Method Oxygen Flow Rate 04/25/25 02:06 04/25/25 02:06 04/25/25 02:15 Pulse Rate 146 H Respiratory Rate 18 Blood Pressure 113/73 159/79 H Pulse Oximetry 97 Oxygen Delivery Method Oxygen Flow Rate 04/25/25 02:15 04/25/25 02:30 04/25/25 02:31 Pulse Rate 137 H 119 H Respiratory Rate 23 23 Blood Pressure 133/63 Pulse Oximetry 95 93 Oxygen Delivery Method Oxygen Flow Rate 04/25/25 02:31 04/25/25 02:45 04/25/25 02:45 Pulse Rate 119 H 115 H Respiratory Rate 24 18 Blood Pressure 122/59 L Pulse Oximetry 91 97 Oxygen Delivery Method Oxygen Flow Rate 04/25/25 03:00 04/25/25 03:00 04/25/25 03:15 Pulse Rate 133 H 130 H Respiratory Rate 31 H 25 H Blood Pressure 153/79 H Pulse Oximetry 96 99 Oxygen Delivery Method Oxygen Flow Rate 04/25/25 03:15 Pulse Rate Respiratory Rate Blood Pressure 117/78 Pulse Oximetry Oxygen Delivery Method Oxygen Flow Rate Medical Decision Making Lab Data Lab results reviewed: Yes I reviewed the patient's lab results. Lab results narrative: White blood cell count 89068, hemoglobin 12.1, platelets adequate. Glucose 107, BUN 27 with creatinine 0.61, serum CO2 26, sodium 135 slightly low, potassium 4.2 normal. Total bilirubin 1.8 mild elevation, other liver functions normal. Lipase normal. Troponin initial 0.224 elevated, repeat troponin 0.374 for further increased. 04/24/25 17:50 04/24/25 16:49 Labs: Lab Results 04/24/25 04/24/25 04/25/25 Range/Units 16:49 17:50 00:30 WBC 10.8 (4.5-11.0) X10^3/uL RBC 3.85 L (4.0-5.2) X10^6/uL Hgb 12.1 (12.0-16.0) g/dL Hct 35.6 L (36-46) % MCV 92.5 (80-100) fL MCH 31.3 (26-34) PG MCHC 33.8 (30-36) % RDW 14.4 (11.6-14.8) % Plt Count 186 (150-400) X10^3/uL Neut % (Auto) 74.7 (50-75) % Lymph % (Auto) 12.2 L (25-40) % Stearns % (Auto) 12.1 (3-14) % Eos % (Auto) 0.7 L (2-4) % Baso % (Auto) 0.3 (0-2) % Neut # (Auto) 8100 H (2607-5174) /uL Lymph # (Auto) 1300 (8754-4159) /uL Stearns # (Auto) 1300 H (0-900) /uL Eos # (Auto) 100 (0-450) /uL Baso # (Auto) 0 (0-100) /uL ESR 37 H (0-20) MM/HR APTT 21 L 36 D (25.1-36.5) SECONDS D-Dimer 2559 H (<500) ng/ml Sodium 135 L (137-145) mmol/L Potassium 4.2 (3.4-5.1) mmol/L Chloride 102 (98-107) mmol/L Carbon Dioxide 26 (22-32) mmol/L BUN 27 H (7-17) mg/dL Creatinine 0.61 (0.52-1.04) mg/dL Estimated GFR > 60 (>60) mL/min BUN/Creatinine Ratio 44.3 H (6-22) Glucose 107 H (70-99) mg/dL Calcium 9.0 (8.4-10.2) mg/dL Total Bilirubin 1.8 H (0.2-1.3) mg/dL AST 44 H (14-36) IU/L ALT 18 (<35) IU/L Alkaline Phosphatase 58 (38-126) U/L Total Creatine Kinase 121 (30-135) U/L Troponin I 0.224 H* 0.374 H* 0.743 H* (0.01-0.034) ng/mL C-Reactive Protein 5.4 H (<1.0) mg/dL Total Protein 8.1 (6.3-8.2) g/dL Albumin 3.9 (3.5-5.0) g/dL Globulin 4.2 H (1.7-4.1) g/dL Albumin/Globulin Ratio 0.9 L (1.0-2.8) Lipase 29 (23-300) U/L Imaging Data Chest x-ray: Radiologist's Impression: [address] [address] XRay Report Signed Patient: Renae Lafleur MR#: [id number] : 1950 Acct:[id number] Age/Sex: 74 / F Date of Service: 04/24/25 Loc: ED Accession Number: [id number] Procedure: XR chest 1V Ordering Provider: Brian Granados D.O. PROCEDURE: XR CHEST 1V INDICATIONS: chest pain TECHNIQUE: One view of the chest was acquired. COMPARISON: None. FINDINGS: Surgical changes and devices: ACDF of the lower cervical spine. Lungs and pleura: Lungs are clear. No pleural effusions or pneumothorax. Calcified granuloma. Bibasilar scarring. Mediastinum: Mediastinal contours appear normal. Heart size is enlarged. Bones and chest wall: No suspicious bony lesions. Overlying soft tissues appear unremarkable. IMPRESSION: No acute cardiopulmonary abnormality is seen. Dictated by: Fortino Jung M.D. on 04/24/2025 at 17:00 Approved by: Fortino Jung M.D. on 04/24/2025 at 17:00 CT scan - head: Radiologist's Impression: [address] [address] [address] Scan Report Signed Patient: Renae Lafleur MR#: [id number] : 1950 Acct:[id number] Age/Sex: 74 / F Date of Service: 04/24/25 Loc: ED Accession Number: [id number] Procedure: CT head/brain wo con Ordering Provider: Brian Granados D.O. PROCEDURE: CT HEAD/BRAIN WO CON INDICATIONS: crao per eye TECHNIQUE: Noncontrast 4.5 mm thick angled axial sections acquired from the foramen magnum to the vertex, with coronal and sagittal reformats. For radiation dose reduction, the following was used: automated exposure control, adjustment of mA and/or kV according to patient size. COMPARISON: None. FINDINGS: Image quality: Diagnostic. CSF spaces: Basal cisterns are patent. No extra-axial fluid collections. The ventricles are symmetric in size and shape. Brain: No intracranial bleeds or mass effect. There is cerebral volume loss, with resultant ventricular and sulcal prominence. There are periventricular and deep white matter chronic small vessel ischemic changes. There is intracranial internal carotid artery atherosclerosis. Skull and face: Calvarium and visualized facial bones appear intact, without suspicious lesions. Sinuses: Visualized sinuses and mastoids are clear. IMPRESSION: No acute intracranial pathology. Dictated by: Fortino Jung M.D. on 04/24/2025 at 17:52 Approved by: Fortino Jung M.D. on 04/24/2025 at 17:53 CTA - brain/neck: Radiologist's Impression: [place] [address] CT Scan Report Signed Patient: Renae Lafleur MR#: [id number] : 1950 Acct:[id number] Age/Sex: 74 / F Date of Service: 04/24/25 Loc: ED Accession Number: [id number] Procedure: CT angio head and neck Ordering Provider: Brian Granados D.O. PROCEDURE: CT ANGIO HEAD AND NECK INDICATIONS: crao per eye TECHNIQUE: After the administration of intravenous contrast, 1 mm thick sections acquired from the aortic arch through the [place] of [place]. 3-dimensional febmlbh-vrptiohuc-spiyrvjash (MIP) and/or volume rendering reformats were acquired of the central intracranial vasculature and neck separately. For radiation dose reduction, the following was used: automated exposure control, adjustment of mA and/or kV according to patient size. COMPARISON: None. FINDINGS: Image quality: Diagnostic. Cerebral CT Angiogram: Internal carotid arteries: No acute findings. Intracranial ICA are patent with no significant stenosis. No occlusion. No aneurysm. Anterior cerebral arteries: Unremarkable. No significant stenosis. No occlusion. No aneurysm. Middle cerebral arteries: Unremarkable. No significant stenosis. No occlusion. No aneurysm. Posterior cerebral arteries: Unremarkable. No significant stenosis. No occlusion. No aneurysm. Basilar artery: Unremarkable. No significant stenosis. No occlusion. No aneurysm. Vertebral arteries: Unremarkable as visualized. Dural venous sinuses: Unremarkable given phase of enhancement. Other: Arterial phase appearance of the brain parenchyma is unremarkable. Neck CT Angiogram: Internal carotid arteries: Unremarkable. No significant stenosis. No dissection or occlusion. Common carotid arteries: Unremarkable. No significant stenosis. No dissection or occlusion. External carotid arteries: Unremarkable. No occlusion. Vertebral arteries: Unremarkable. No significant stenosis. No dissection or occlusion. Aortic Arch and Mediastinum: Partially visualized aortic arch unremarkable without evidence of aneurysm. Origins of the great vessels unremarkable. Other: Arterial phase soft tissues of the neck and chest are unremarkable. IMPRESSION: No significant intracranial arterial abnormality is seen. No significant abnormality is seen within the arteries of the neck. Any quantitative measurements of stenosis were performed using NASCET criteria. Dictated by: Fortino Jung M.D. on 04/24/2025 at 18:00 Approved by: Fortino Jung M.D. on 04/24/2025 at 18:01 CTA chest PE protocol: Radiologist's Impression: [place] [address] CT Scan Report Signed Patient: Renae Lafleru MR#: [id number] : 1950 Acct:[id number] Age/Sex: 74 / F Date of Service: 04/24/25 Loc: ED Accession Number: [id number] Procedure: CT angio chest PE protocol Ordering Provider: Shemar Greenwood MD PROCEDURE: CT ANGIO CHEST PE PROTOCOL INDICATIONS: Dd+++. elev trop, recent loss vision L eye TECHNIQUE: After the administration of intravenous contrast, 2 mm thick sections acquired from the pulmonary apices to the posterior costophrenic angles. 3-dimensional maximum intensity projection (MIP) coronal and sagittal reformats were then acquired through the thorax. For radiation dose reduction, the following was used: automated exposure control, adjustment of mA and/or kV according to patient size. COMPARISON: [facility], CT, CT ANGIO HEAD AND NECK, 04/24/2025, 17:29. [facility], CT, CT CHEST WO CON, 04/05/2021, 10:16. FINDINGS: Image quality: Diagnostic. Pulmonary arteries: There is abnormal contour with suspected filling defect the right segmental pulmonary artery, (4/76). No additional emboli. Lower Neck: No enlarged lymph nodes. Thyroid: No thyroid nodules which require sonographic follow up, per consensus guidelines. Axillae: No enlarged lymph nodes. Chest Wall: Unremarkable. Bones: No suspicious osseous lesion. ACDF. Lungs and Pleura: No pneumothorax or pleural effusions. Moderate emphysematous change. Several areas of ill-defined opacities with partial calcification. For example left upper lobe, (5/122). Overall similar. Small opacity in the left upper lobe is resolved, (04/05/2021 series 3/120). There is mild increased opacity at the left lung base, (5/254). There are areas of bronchial wall thickening and distal mucus airway plugging. Heart: Heart size is normal. No pericardial effusion. Thoracic Vessels: No aortic aneurysm. Mediastinum and Anca: No enlarged lymph nodes. Esophagus: No wall thickening. No hiatal hernia. Upper Abdomen: Visualized upper abdomen solid organs and bowel loops appear normal. IMPRESSION: 1. Suspected filling defect in the right segmental pulmonary artery. However, this does not have the typical appearance of an acute pulmonary embolism. This could represent chronic thromboembolism or in situ thrombus. Vasculitis is also a consideration. 2. Mild increased opacity at the left lung base. Other scattered opacities partially calcified are overall similar to 202. Emphysematous change in findings of chronic bronchitis. Comment: Findings were discussed with Dr. Greenwood at time of dictation. Dictated by: Tristan Lorenzo M.D. on 04/24/2025 at 21:13 Approved by: Tristan Lorenzo M.D. on 04/24/2025 at 21:31 MRI brain: Radiologist's Impression: [address] [address] Magnetic Resonance Report Signed Patient: Renae Lafleur MR#: [id number] : 1950 Acct:[id number] Age/Sex: 74 / F Date of Service: 04/24/25 Loc: ED Accession Number: [id number] Procedure: MR head/brain wo con Ordering Provider: Shemar Greenwood MD PROCEDURE: MR HEAD/BRAIN WO CON INDICATIONS: visual changes, ?CRAO TECHNIQUE: Non-contrast axial T1 spin echo, axial T2 fast spin echo, sagittal and axial FLAIR, coronal T2 fast spin echo, axial gradient echo, axial diffusion and ADC through the brain. COMPARISON: [facility], CT, CT HEAD/BRAIN WO CON, 04/24/2025, 17:29. FINDINGS: Image quality: Motion degraded CSF spaces: Ventricles appear symmetric in size and shape. Basal cisterns are patent. No extra-axial fluid collections. Brain: Small focus of restricted diffusion within the inferior and medial left frontal lobe measuring approximately 4 mm (6/12). Additional tiny punctate focus within the left frontal lobe more superiorly (6/18). No intracranial bleeds or mass effects. There is cerebral volume loss for age. There are periventricular and deep white matter chronic small vessel ischemic changes including within the brainstem. No chronic ischemic insults. Normal intravascular flow voids are present. Skull and face: Calvarial bone marrow is normal in signal. Orbits are normal. Sinuses: Sinuses and mastoids are clear. IMPRESSION: Two small foci of restricted diffusion within the left frontal lobe concerning for acute infarcts. Age-related global volume loss and chronic microvascular ischemic changes are present. Dictated by: Latrell Demarco M.D. on 04/24/2025 at 21:50 Approved by: Latrell Demarco M.D. on 04/24/2025 at 21:54 Bilateral lower extremity venous Doppler studies: Radiologist's Impression: [place] [address] Ultrasound Report Signed Patient: Renae Lafleur MR#: [id number] : 1950 Acct:[id number] Age/Sex: 74 / F Date of Service: 04/24/25 Loc: ED Accession Number: [id number] Procedure: US periph venous low extrem bi Ordering Provider: Shemar Greenwood MD PROCEDURE: US PERIPH VENOUS LOW EXTREM BI INDICATIONS: Ddimer high, CTA chest equiv PE, doppler legs TECHNIQUE: Real-time imaging, as well as color and pulse Doppler interrogation, were performed of the deep veins of both legs from the inguinal ligament to the popliteal fossa, with documentation of the visualized calf veins. COMPARISON: None. FINDINGS: Right: Nonocclusive thrombus in the popliteal vein. Left: Occlusive thrombus in the popliteal vein and distal femoral vein. IMPRESSION: Positive exam. Bilateral lower extremity DVTs. Dictated by: Tristan Lorenzo M.D. on 04/25/2025 at 0:18 Approved by: Tristan Lorenzo M.D. on 04/25/2025 at 0:20 ECG Data Attestation: I personally reviewed and interpreted this ECG as follows: Interpretation: 1700, sinus rhythm with PACs, ventricular rate 88. No ST segment elevation, slight upsloping ST segment depressions V3-V5. TX 140, QRS 92, QTC 486. 0126, atrial fibrillation with rapid ventricular response, ventricular rate 148. No obvious ST segment elevation or depression changes. Upsloping ST segment depression leads V3-V5. QRS 88, QTC 483. MDM Narrative Medical decision making narrative: 74-year-old female with history of COPD on chronic oxygen 1-2 L, for the last week or so has increasing shortness of breath, doubt herself up to 2-3 L oxygen, no chest pain, no leg pain or swelling. At noon today had acute loss of vision left eye, dark magallanes, can see slight shadow movements only. 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 On arrival here had stroke alert, CT head noncontrast study, CTA head and neck vessels ordered. CT head, no acute changes. See radiology report. CT angiogram head and neck vessels, no occlusions, no significant vascular narrowing. See radiology report. Lab data: White blood cell count 12494, hemoglobin 12.1, platelets adequate. Glucose 107, BUN 27 with creatinine 0.61, serum CO2 26, sodium 135 slightly low, potassium 4.2 normal. Total bilirubin 1.8 mild elevation, other liver functions normal. Lipase normal. Troponin initial 0.224 elevated, repeat troponin 0.374 for further increased. No obvious contraindication to MRI, they can squeeze her in here at 6:30 p.m., MRI brain noncontrast study ordered. Rising troponin, self titration home oxygen recent, hx COPD. We will give aspirin, IV heparin bolus/infusion per ACS protocol. Will treat for non STEMI for now. D-dimer pending. Will consult Neurology. 1899, case discussed with [facility] neuro intake and then neurologist, who will review images and call back. Expressed understanding of aspirin and IV heparin for ACS given increasing troponin and increased oxygen requirement over baseline with shortness of breath. Call back from Neurology fellow Dr. Hamilton, who had consulted her stroke attending Dr. Perez, normally for possible stroke they would advise DAPT, but understanding the troponin elevation, possible non STEMI versus PE evaluation, aspirin and heparin in progress, cardiopulmonary evaluation takes precedent in this setting. They can further consult. Agree with MRI brain evaluation, which can be done this evening, and cardiac echo to be coordinated. Unclear disposition, as there is no inpatient cardiology here. We will contact further with MRI brain results. D-dimer 2400 markedly elevated. We will give IV fluid bolus, CTA chest PE protocol ordered. CTA chest PE protocol. Impressions: ?1. Suspected filling defect in the right segmental pulmonary artery. However, this does not have the typical appearance of an acute pulmonary embolism. This could represent chronic thromboembolism or in situ thrombus. Vasculitis is also a consideration. 2. Mild increased opacity at the left lung base. Other scattered opacities partially calcified are overall similar to 2020. Emphysematous change in findings of chronic bronchitis. See radiology report. Equivocal findings right segmental pulmonary artery, no acute PE but possible RML chronic or in-situ PE, no RV strain. Patient on heparin for ACS/NSTEMI. Unclear disposition plan. Neurology can further consult if admitted here. No cardiac laborer aquatic life available here. We will reach out to cardiology Dr. Schaffer. MRI brain was completed, patient has history of claustrophobia/anxiety but was able to complete the study without medications. Report now imported. Impressions: ?Two small foci of restricted diffusion within the left frontal lobe concerning for acute infarcts. Age-related global volume loss and chronic microvascular ischemic changes are present. See radiology report. 2239, case discussed with Neuro new neurology Dr Lindsay, usually would get DAPT therapy, cardiopulmonary issues predominant at this juncture and workup, concurs with ASA/heaprin for ACS concerns, no change in therapy, no need for transfer to neurology at this time. We will consult Cardiology Dr. Schaffer to see if patient can be admitted here. Patient prefers to be admitted here. PCP Antonietta. Bilateral lower extremity venous Doppler performed, results are pending, for further workup of positive D-dimer, no leg pain or swelling symptoms. Patient on IV heparin for ACS. Case discussed with Dr. Schaffer, who feels that patient can be admitted here, would get echocardiogram, continue heparin for 48 hours, and trend the troponin. Patient prefers to be admitted here. We will reach out to hospitalist. 2330, case discussed with tele-hospitalist Dr. Hunt who does not feel comfortable admitting here, requests transfer to in-house Cardiology and Neurology capable facility. 0010, case discussed with Dr Guerrero at [facility], can consult if transferred. Await call back from [facility] Cardiology. 0030, transfer center indicated that cardiology accepted at [facility], case discussed with [facility] hospitalist Dr. Dunn, who accepts patient for transfer. Awaiting bed assignment. Bilateral lower extremity shows DVT. Possible chronic/in-Situ right middle lobe pulmonary embolus on CTA chest imaging. Heparin order changed from ACS to higher VTE infusion dosage. 0130, rhythm change with narrow complex tachycardia, variable RR waves, suspected AFib, ventricular response rate 150, systolic blood pressure 160, stable at present. Denies chest pain. Trial of rate control. IV diltiazem bolus then infusion. Patient with some improvement on diltiazem bolus then infusion titrated up to 15 milligrams/hour, ventricular rate 120-140, metoprolol IV 5 mg single dose, heart rate improved 100-120 range. Systolic blood pressure 1 100-10. [facility] updated about AFib RVR development, aware, we will proceed with transfer. Bed assigned. ALS transport requested. 0230, [facility] reports it will be multiple hours before any ground ALS available, will query air ambulance options. 0315, air ambulance crew here for transport, AFib RVR with rate 110-120 range on diltiazem infusion, had received IV metoprolol 5 mg single dose as well. IV heparin infusing as well. transfer via air ambulance Critical Care Time Critical Care Time Total Critical Care Time: 45 Attestation: The high probability of a clinically significant, sudden or life threatening deterioration of the [cardiopulmonary, cerebrovascular, neurologic] system(s) required my full and direct attention, intervention and personal management. The aggregate critical care time was [45] minutes. This time is in addition to time spent performing reported procedures but includes the following: [x] Data Review and interpretation [x] Patient assessment and monitoring of vital signs [x] Documentation [x] Medication orders and management Discharge Plan Departure Patient Disposition: [facility] Clinical Impression: Vision loss of left eye, Pulmonary embolism, Dyspnea, History of COPD, Stroke, Non-ST elevation TN (NSTEMI), DVT of lower extremity, bilateral, Atrial fibrillation with rapid ventricular response Prescriptions: No Action ipratropium-albuterol 0.5 mg-3 mg(2.5 mg base)/3 mL solution for nebulization 3 ml inhalation BID PRN (Reason: shortness of breath or wheezing) Qty: 180 11RF fluticasone propion-salmeterol [Wixela Inhub] 500-50 mcg/dose blister with device 1 inh inhalation BID PRN Patient Comments: [NO ORIGINAL SIG] cholecalciferol (vitamin D3) 125 mcg (5,000 unit) capsule 125 mcg PO DAILY Spiriva Respimat 2.5 mcg/actuation mist 2 puff inhalation BID amlodipine 2.5 mg tablet 2.5 mg PO DAILY Qty: 60 3RF famotidine [Pepcid] 20 mg tablet 20 mg PO DAILY omeprazole 20 mg capsule,delayed release(DR/EC) 20 mg PO BID Qty: 60 0RF metoprolol succinate 50 mg tablet extended release 24 hr 50 mg PO DAILY ferrous sulfate [FeroSul] 325 mg (65 mg iron) tablet 325 mg PO DAILY (DME) Battery powered portable O2 concentrator See Rx Instructions .Route .MEDSUPPLY Qty: 1 0RF Rx Instructions: As directed albuterol sulfate [ProAir HFA] 90 mcg/actuation HFA aerosol inhaler 2 puff inhalation Q4-6H PRN paroxetine HCl 20 mg tablet 20 mg PO BID Rx Instructions: 2 (two) times a day aspirin 325 mg tablet 325 mg PO DAILY Rx Instructions: Take 325 mg by mouth daily melatonin 10 mg capsule 20 mg PO BEDTIME Rx Instructions: Take 20 mg by mouth nightly tolterodine 2 mg capsule,extended release 24hr 2 mg PO DAILY Referrals: Carine Mane DO [Primary Care Provider, Family Practice]
[2025-04-24 18:06] LABS: Add Manual Diff / Slide Review NO; Hematocrit 35.6 % (36-46); Hemoglobin 12.1 g/dL (12.0-16.0); Lymphocytes Absolute Auto 1300 /uL (1100-4500); Mean Corpuscular HGB Conc 33.8 % (30-36); Mean Corpuscular Hemoglobin 31.3 PG (26-34); Mean Corpuscular Volume 92.5 fL (80-100); Platelet Count 186 X10^3/uL (150-400)
[2025-04-24 18:24] LABS: Troponin I 0.374 ng/mL (0.01-0.034)
[2025-04-24] MEDS: HEPARIN 5,000 UNIT/ML VIAL 4000 UNIT IV (18:45)
[2025-04-24] MEDS: HEPARIN DRIP 25,000 UNIT/500 ML IV.SOLN 15.785 UNIT IV (18:45)
[2025-04-24] MEDS: ASPIRIN 81 MG CHEW TAB 324 MG PO (18:45)
[2025-04-24 18:58] LABS: PTT Partial Thromboplastin Tim 21 SECONDS (25.1-36.5)
--- NOTE | 2025-04-24 19:08 | PC.NURSE ---
acosta: home: [phone] cell:[phone]
--- NOTE | 2025-04-24 19:27 | PC.NURSE ---
This nurse started IV Heparin in Left AC, after approx 5 minutes pt c/o pain to area. Heparin drip was switch to IV on Right AC. DC'd left AC IV.
--- NOTE | 2025-04-24 19:44 | PC.NURSE ---
discontinued IV access to left AC, placed a dressing with coban over the area.
--- NOTE | 2025-04-24 19:46 | DI.CT.S_ITS ---
PROCEDURE: CT ANGIO CHEST PE PROTOCOL INDICATIONS: Dd+++. elev trop, recent loss vision L eye TECHNIQUE: After the administration of intravenous contrast, 2 mm thick sections acquired from the pulmonary apices to the posterior costophrenic angles. 3-dimensional maximum intensity projection (MIP) coronal and sagittal reformats were then acquired through the thorax. For radiation dose reduction, the following was used: automated exposure control, adjustment of mA and/or kV according to patient size. COMPARISON: [facility], CT, CT ANGIO HEAD AND NECK, 04/24/2025, 17:29. [facility], CT, CT CHEST WO CON, 04/05/2021, 10:16. FINDINGS: Image quality: Diagnostic. Pulmonary arteries: There is abnormal contour with suspected filling defect the right segmental pulmonary artery, (4/76). No additional emboli. Lower Neck: No enlarged lymph nodes. Thyroid: No thyroid nodules which require sonographic follow up, per consensus guidelines. Axillae: No enlarged lymph nodes. Chest Wall: Unremarkable. Bones: No suspicious osseous lesion. ACDF. Lungs and Pleura: No pneumothorax or pleural effusions. Moderate emphysematous change. Several areas of ill-defined opacities with partial calcification. For example left upper lobe, (5/122). Overall similar. Small opacity in the left upper lobe is resolved, (04/05/2021 series 3/120). There is mild increased opacity at the left lung base, (5/254). There are areas of bronchial wall thickening and distal mucus airway plugging. Heart: Heart size is normal. No pericardial effusion. Thoracic Vessels: No aortic aneurysm. Mediastinum and Anca: No enlarged lymph nodes. Esophagus: No wall thickening. No hiatal hernia. Upper Abdomen: Visualized upper abdomen solid organs and bowel loops appear normal. IMPRESSION: 1. Suspected filling defect in the right segmental pulmonary artery. However, this does not have the typical appearance of an acute pulmonary embolism. This could represent chronic thromboembolism or in situ thrombus. Vasculitis is also a consideration. 2. Mild increased opacity at the left lung base. Other scattered opacities partially calcified are overall similar to 202. Emphysematous change in findings of chronic bronchitis. Comment: Findings were discussed with Dr. Greenwood at time of dictation. Dictated by: Tristan Lorenzo M.D. on 04/24/2025 at 21:13 Approved by: Tristan Lorenzo M.D. on 04/24/2025 at 21:31
[2025-04-24] MEDS: SODIUM CHLORIDE 0.9% 1,000 ML 500 ML IV (20:46)
--- NOTE | 2025-04-24 21:17 | PC.NURSE ---
04/24/25 @ 2100 this nurse paused heparin and NS drips, with provider verbal okay, for MR imaging
--- NOTE | 2025-04-24 21:51 | DI.US.S_ITS ---
PROCEDURE: US PERIPH VENOUS LOW EXTREM BI INDICATIONS: Ddimer high, CTA chest equiv PE, doppler legs TECHNIQUE: Real-time imaging, as well as color and pulse Doppler interrogation, were performed of the deep veins of both legs from the inguinal ligament to the popliteal fossa, with documentation of the visualized calf veins. COMPARISON: None. FINDINGS: Right: Nonocclusive thrombus in the popliteal vein. Left: Occlusive thrombus in the popliteal vein and distal femoral vein. IMPRESSION: Positive exam. Bilateral lower extremity DVTs. Dictated by: Tristan Lorenzo M.D. on 04/25/2025 at 0:18 Approved by: Tristan Lorenzo M.D. on 04/25/2025 at 0:20
[2025-04-25] VITALS (16 sets, daily range): BP systolic 113–196; BP diastolic 59–122; PULSE 89–161; RESP 16–31; O2SAT 91–99
[2025-04-25] MEDS: ACETAMINOPHEN 325 MG TABLET 650 MG PO (00:47)
[2025-04-25 00:52] LABS: PTT Partial Thromboplastin Tim 36 SECONDS (25.1-36.5)
[2025-04-25 01:12] LABS: Troponin I 0.743 ng/mL (0.01-0.034)
[2025-04-25] MEDS: HEPARIN 5,000 UNIT/ML VIAL 1645 UNIT IV (01:13)
--- NOTE | 2025-04-25 01:21 | EKG_ITS ---
[facility] [address] [place] [address] Test Date: 2025-04-25 Pat Name: Renae Lafleur Department: [facility] Room: Gender: Female [employer]: ALICIA : [id number] Requested By: Order Number: [id number] Reading MD: Brian Nolasco MD Measurements Intervals [place] Rate: 148 P: [place]: QRS: 80 QRSD: 88 T: 264 QT: 308 QTc: 483 Interpretive Statements Critical Test Result: High HR Atrial fibrillation with rapid ventricular response Marked ST abnormality, possible anterior subendocardial injury Electronically Signed On 04-25-2025 7:24:54 PDT by Brian Nolasco MD
[2025-04-25] MEDS: METOPROLOL TARTRATE 5 MG/5 ML INJ IV (02:16)
[2025-04-25] MEDS: SODIUM CHLORIDE 0.9% 1,000 ML 500 ML IV (02:21)
[2025-04-25] MEDS: HEPARIN DRIP 25,000 UNIT/500 ML IV.SOLN 23.678 UNIT IV (02:49)
--- NOTE | 2025-04-25 03:30 | PC.NURSE ---
Heparin infusion and Diltiazem infusion continued with transfer, report given to RADHA Torres with [employer]
[2025-04-25 03:32] LABS: HEMOLYSIS 76 (0-50)
--- NOTE | 2025-04-25 03:46 | PC.NURSE ---
At 0030 pt started having Afib with RVR Dr Greenwood informed and in room to evaluate pt, ekg done, pt denies any c/p states she just feels like her heart is beating out of her chest pt was given a bolus dose of diltizem and started on an infusion of Diltizem at 5mg/hr infusion was titrated up to 15mg/hr and pt's hr continued to fluctuate between 130-160, Dr Greenwood informed pt's bp 113/73 Metoprolol 5mg ordered and given IVP HR temporarily slowed to <100 but returned to 110's to 130's, pt denied c/p at all times. @ 0249 Heparin was increased to 18 units/kg/hr per Dr Greenwood's order d/t pt's condition. @ 0300 pt was changed of wet linens, after lying pt's HOB down to change linen pt became SOB and had to have the HOB elevated up to 90 degrees and her O2 increased to 3L/NC her O2 sats did not decrease but it took pt 15-20 min before she felt comfortable with her breathing again and was able to speak in short sentences.
== END 2025-04-25 03:35 | disposition short-term general hospital (02) ==
PROVIDERS: Family Medicine; Emergency Provider Emergency Medicine; PCP Family Medicine
DX: I63.9 Cerebral infarction, unspecified (principal); H54.62 Unqualified visual loss, left eye, normal vision right eye; I26.99 Other pulmonary embolism without acute cor pulmonale; J44.9 Chronic obstructive pulmonary disease, unspecified; I21.4 Non-ST elevation (NSTEMI) myocardial infarction; I82.433 Acute embolism and thrombosis of popliteal vein, bilateral; I82.412 Acute embolism and thrombosis of left femoral vein; I48.91 Unspecified atrial fibrillation; Z99.81 Dependence on supplemental oxygen; Z87.891 Personal history of nicotine dependence
CPT/HCPCS: 36415; 70450; 70496; 70498; 70551; 71045; 71275; 80053; 82550; 83690; 84484; 85025; 85379; 85651; 85730; 86140; 93005; 93970; 96365; 96366; 96367; 96368; 96375; 99285; 99291; J1644; Q9967

== ENCOUNTER → 2025-07-19 13:48 | Outpatient (CLI) | payer MEDICARE, OTHER, SELFPAY ==
--- NOTE | 2025-07-19 13:50 | DI.RAD.S_ITS ---
PROCEDURE: XR SHOULDER RT MIN 2V INDICATIONS: pain right shoulder, decreased ROM TECHNIQUE: 3 views of the shoulder were acquired. COMPARISON: None. FINDINGS: Bones: No acute fractures or dislocations. No suspicious bony lesions. Visualized ribs appear intact. Moderate degenerative changes at the acromioclavicular joint. At least mild glenohumeral degenerative changes. Generalized bony demineralization. Soft tissues: No suspicious soft tissue calcifications. IMPRESSION: Moderate acromioclavicular joint osteoarthrosis and mild glenohumeral osteoarthrosis. No acute osseous abnormality. Approved by: Gene Sam M.D. on 07/20/2025 at 9:44
== END ==
PROVIDERS: PCP Family Medicine; Referring Provider Family Medicine; Visit Provider Family Medicine
DX: M19.011 Primary osteoarthritis, right shoulder (principal); M25.611 Stiffness of right shoulder, not elsewhere classified; M25.511 Pain in right shoulder; G89.29 Other chronic pain
CPT/HCPCS: 73030